=== PATIENT | male | born 1945 | race Caucasian/White ===

== ENCOUNTER 2017-05-15 08:13 | Day surgery (SDC) | payer MEDICARE, BC ==
[~2017-05-15] VITALS: Ht 172.7 cm; Wt 111.1 kg
[~2017-05-15 08:13] MED LIST: AMOXICILLIN500 MG PO; ASPIRIN 81 LOW81 MG PO; ASPIRIN EC325 MG PO; BRIMONIDINE TAR0.2 % OP; CIPROFLOXACN500 MG PO; COSOPT1 ML OT; DOXYCYCL HYC100 MG PO; LEVITRA10 MG PO; LIPITOR20 M1 PO; LOSARTAN POT100 MG PO; NAPROXEN250 MG PO; OCUVIT1 PO; PILOCARPINE OU; PREDNISONE20 MG PO; XALATAN0.005 % OP
[2017-05-15 10:37] VITALS: BP 103/59
== END 2017-05-15 11:22 | disposition home or self-care (01) ==
LOC: ENDO 08:13 → ORM 11:30 → ENDO 11:30
PROVIDERS: ATTEND Surgery
PROC: 0DJD8ZZ Inspection of Lower Intestinal Tract, Via Natural or Artificial Opening Endoscopic (ICD-10-PCS; principal; 2017-05-15)
DX: K59.00 Constipation, unspecified (principal); K57.30 Diverticulosis of large intestine without perforation or abscess without bleeding; I10 Essential (primary) hypertension; E78.00 Pure hypercholesterolemia, unspecified; M19.90 Unspecified osteoarthritis, unspecified site; H40.9 Unspecified glaucoma

== ENCOUNTER 2019-03-18 09:06 | Inpatient (IN) | payer MEDICARE, BC ==
[~2019-03-18] VITALS: Ht 172.7 cm; Wt 111.1 kg
[~2019-03-18 09:06] MED LIST changes: -COSOPT1 ML OT; +COSOPT1 ML OU
[2019-03-18] MEDS ORDERED: NAPROXEN250 MG PO (09:43)
[2019-03-23] VITALS (9 sets, daily range): BP systolic 117–153; BP diastolic 80–94
[2019-03-24 03:41] VITALS: BP 130/79
[2019-03-24 05:01] LABS: HEMATOCRIT 45.6 % (39.0-50.0); HEMOGLOBIN 15.3 g/dl (14.0-18.0)
[2019-03-24 08:36] VITALS: BP 118/70
[2019-03-24 12:00] VITALS: BP 109/66
[2019-03-24 15:56] VITALS: BP 123/69
[2019-03-24 18:40] VITALS: BP 125/75
[2019-03-25 05:10] LABS: HEMATOCRIT 43.3 % (39.0-50.0); HEMOGLOBIN 14.6 g/dl (14.0-18.0); IMMATURE GRANULOCYTES 0.2 % (0.0-5.0); MEAN CELL VOLUME 99.8 fL CALC (80.0-100.0); MEAN CORPUSCULAR HGB 33.6 pG CALC (26.0-32.0); MEAN CORPUSCULAR HGB CONC 33.7 g/L CALC (32.0-36.0); NEUT# 6.05 thou/uL (1.82-7.42); RED BLOOD COUNT 4.34 mill/uL (4.70-6.10)
[2019-03-25 05:12] VITALS: BP 130/71
[2019-03-25 05:29] LABS: ANION GAP 13 (6-22 (CALC)); BUN 14 mg/dL (8-23); BUN/CREATININE RATIO 19 (12-20 (CALC)); CARBON DIOXIDE 23 mmol/l (22-30); CHLORIDE 104 mmol/l (95-108); CREATININE 0.8 mg/dL (0.7-1.3); GFR > 60 ML/MIN (>=60 (CALC)); GFR FOR AFR.AMER. > 60 ML/MIN (>=60 (CALC)); MAGNESIUM 1.7 mg/dL (1.6-2.3); POTASSIUM 4.3 mmol/l (3.5-5.1); SODIUM 135 mmol/l (137-146)
[2019-03-25 08:12] VITALS: BP 147/95
[2019-03-25 10:58] VITALS: BP 121/65
[2019-03-25 17:01] VITALS: BP 142/93
[2019-03-25 18:01] LABS: URINE BILIRUBIN - DIPSTICK NEGATIVE (NEGATIVE); URINE BLOOD DIPSTICK NEGATIVE (NEGATIVE); URINE COLOR YELLOW; URINE GLUCOSE - DIPSTICK NEGATIVE (NEGATIVE); URINE KETONE NEGATIVE (NEGATIVE); URINE LEUK ESTERASE NEGATIVE (NEGATIVE); URINE NITRITE - DIPSTICK NEGATIVE (Negative); URINE PROTEIN - DIPSTICK NEGATIVE (NEG-TRACE); URINE SPECIFIC GRAVITY 1.015; URINE UROBILINOGEN - DIPSTICK 0.2 E.U./dL (0.2)
[2019-03-25 19:24] VITALS: BP 129/82
[2019-03-26 00:17] VITALS: BP 145/86
[2019-03-26 04:30] VITALS: BP 145/94
[2019-03-26 05:21] LABS: HEMATOCRIT 41.1 % (39.0-50.0); HEMOGLOBIN 13.9 g/dl (14.0-18.0); MEAN CORPUSCULAR HGB 33.8 pG CALC (26.0-32.0); MEAN CORPUSCULAR HGB CONC 33.8 g/L CALC (32.0-36.0); RED BLOOD COUNT 4.11 mill/uL (4.70-6.10); RED CELL DISTRI WIDTH 12.7 % (11.5-15.5)
[2019-03-26 08:00] VITALS: BP 131/77
[2019-03-26] MEDS ORDERED: MILK OF MAG30 ML/UDC PO (13:21)
[2019-03-26] MEDS ORDERED: SURFAK240 MG/CAP PO (13:21)
[2019-03-26] MEDS ORDERED: PERCOCET 10/31 COMBO PO (13:21)
[2019-03-26] MEDS ORDERED: ASPIRIN EC325 M1 PO (13:21)
[2019-03-26 15:44] VITALS: BP 124/84
== END 2019-03-26 15:37 | DRG 470 ==
LOC: MS2 03-23 08:49 → OR 03-23 12:30 → MS2 03-26 15:37
PROVIDERS: Nurse Practitioner Family; ADMIT Orthopaedic Surgery; ATTEND Orthopaedic Surgery
PROC: 0SRD0J9 Replacement of Left Knee Joint with Synthetic Substitute, Cemented, Open Approach (ICD-10-PCS; principal; 2019-03-23)
PROC: 3E0T3BZ Introduction of Anesthetic Agent into Peripheral Nerves and Plexi, Percutaneous Approach (ICD-10-PCS; 2019-03-23)
DX: M17.12 Unilateral primary osteoarthritis, left knee (principal); I10 Essential (primary) hypertension; H40.9 Unspecified glaucoma; G47.33 Obstructive sleep apnea (adult) (pediatric); E78.5 Hyperlipidemia, unspecified; H54.7 Unspecified visual loss; H93.292 Other abnormal auditory perceptions, left ear; K59.00 Constipation, unspecified
CPT/HCPCS: J0131; J1100

== ENCOUNTER 2022-08-08 17:25 | Observation (INO) | payer MEDICARE, BC ==
[~2022-08-08] VITALS: Ht 172.7 cm; Wt 110.2 kg
[~2022-08-08 17:25] MED LIST changes: +ASPIRIN EC325 M1 PO; +MILK OF MAG30 ML/UDC PO; +PERCOCET 10/31 COMBO PO; +SURFAK240 MG/CAP PO
[2022-08-08 18:03] LABS: BASO% 0.8 % (0-3); EOS% 5.8 % (0-8); IMMATURE GRANULOCYTES 0.2 % (0.0-5.0); LYMPH% 20.5 % (15-41); MEAN CORPUSCULAR HGB 33.2 pG CALC (26.0-32.0); MEAN CORPUSCULAR HGB CONC 33.2 g/dL CAL (32.0-36.0); MONO% 14.3 % (2-13); NEUT# 3.76 thou/uL (1.82-7.42); NEUT% 58.4 % (42-76); RED BLOOD COUNT 5.03 mill/uL (4.70-6.10); RED CELL DISTRI WIDTH 15.1 % (11.5-15.5)
[2022-08-08 18:07] LABS: ALBUMIN 4.1 g/dL (3.2-5.0); ALKALINE PHOSPHATASE 67 u/l (38-126); ANION GAP 11 (6-22 (CALC)); BUN 19 mg/dL (8-23); BUN/CREATININE RATIO 22 (12-20 (CALC)); CARBON DIOXIDE 24 mmol/l (22-30); CHLORIDE 107 mmol/l (95-108); CREATININE 0.9 mg/dL (0.7-1.3); GFR FOR AFR.AMER. > 60 ML/MIN (>=60 (CALC)); GFR OTHER RACES > 60 ML/MIN (>=60 (CALC)); HEMATOCRIT 50.3 % (39.0-50.0); HEMOGLOBIN 16.7 g/dl (14.0-18.0); POTASSIUM 4.1 mmol/l (3.5-5.1); SGOT/AST 23 u/l (19-48); SODIUM 137 mmol/l (137-146); TOTAL PROTEIN 6.9 g/dL (6.3-8.2)
[2022-08-08 18:09] LABS: BILIRUBIN, TOTAL 1.4 mg/dL (0.2-1.3)
[2022-08-08 18:15] LABS: PROTHROMBIN TIME 10.2 SECONDS (9.0-12.5)
[2022-08-08] MEDS ORDERED: TAMSULOSIN0.4 MG PO (20:10)
[2022-08-08 21:52] VITALS: BP 146/88
[2022-08-08 22:22] VITALS: BP 146/88
[2022-08-08 23:29] VITALS: BP 124/79
[2022-08-08 23:31] VITALS: BP 118/70
[2022-08-09 00:09] VITALS: BP 118/70
[2022-08-09 04:58] VITALS: BP 118/70
[2022-08-09 07:01] VITALS: BP 119/83
[2022-08-09 08:24] LABS: URINE BILIRUBIN - DIPSTICK NEGATIVE (NEGATIVE); URINE COLOR YELLOW; URINE GLUCOSE - DIPSTICK NEGATIVE (NEGATIVE); URINE KETONE NEGATIVE (NEGATIVE); URINE LEUK ESTERASE NEGATIVE (NEGATIVE); URINE NITRITE - DIPSTICK NEGATIVE (Negative); URINE PROTEIN - DIPSTICK NEGATIVE (NEG-TRACE); URINE SPECIFIC GRAVITY 1.025; URINE UROBILINOGEN - DIPSTICK 0.2 E.U./dL (0.2)
[2022-08-09 08:25] LABS: URINE BLOOD DIPSTICK NEGATIVE (NEGATIVE)
[2022-08-09 08:56] VITALS: BP 145/94
[2022-08-09 10:48] VITALS: BP 112/58; BP 112/85
== END 2022-08-09 15:55 | disposition home or self-care (01) ==
LOC: ED 17:25 → ED-I 19:00 → ED 19:16 → MS2 19:17
PROVIDERS: Family Medicine; ADMIT Internal Medicine; ATTEND Internal Medicine
DX: G45.9 Transient cerebral ischemic attack, unspecified (principal); I10 Essential (primary) hypertension; H40.9 Unspecified glaucoma; H54.61 Unqualified visual loss, right eye, normal vision left eye; G47.33 Obstructive sleep apnea (adult) (pediatric); E78.5 Hyperlipidemia, unspecified; Z86.69 Personal history of other diseases of the nervous system and sense organs
CPT/HCPCS: Q9967

== ENCOUNTER 2023-10-08 15:03 | Emergency (ER) | payer MEDICARE, BC ==
[2023-10-08] VITALS (8 sets, daily range): BP systolic 106–130; BP diastolic 71–90
[~2023-10-08] VITALS: Ht 167.6 cm; Wt 94.4 kg
[~2023-10-08 15:03] MED LIST changes: +B121000 MC1 PO; +BAYER ASPIRIN E81 MG PO; +FUROSEMIDE20 MG PO; +PREDNISOLONE ACET1 %; +PROSCAR5 MG PO; +TAMSULOSIN0.4 MG PO; +[UNRECOGNIZED DRUG - OTHER]
[2023-10-08] MEDS ORDERED: SODIUM CHLORIDE 0.9% 1,000 ML IV ONE (15:15)
[2023-10-08 15:29] LABS: IMMATURE GRANULOCYTES 0.4 % (0.0-5.0); LYMPH% 45.7 % (15-41); MEAN CELL VOLUME 95.8 fL CALC (80.0-100.0); MEAN CORPUSCULAR HGB 30.1 pG CALC (26.0-32.0); MEAN CORPUSCULAR HGB CONC 31.5 g/dL CAL (32.0-36.0); MONO% 39.8 % (2-13); NEUT# 0.31 thou/uL (1.82-7.42); NEUT% 12.1 % (42-76); RED BLOOD COUNT 4.81 mill/uL (4.70-6.10); RED CELL DISTRI WIDTH 23.6 % (11.5-15.5)
[2023-10-08 15:40] LABS: CREATININE 1.2 mg/dL (0.7-1.3); POTASSIUM 4.5 mmol/l (3.5-5.1); TOTAL PROTEIN 7.6 g/dL (6.3-8.2)
[2023-10-08 15:55] LABS: D-DIMER 1.05 mg/L (0.19-0.60)
[2023-10-08 15:57] LABS: INTERNATIONAL NORMALIZED RATIO 1.5 RATIO (0.7-1.3); PROTHROMBIN TIME 13.6 SECONDS (9.0-12.5)
[2023-10-08 15:59] LABS: HEMATOCRIT 46.1 % (39.0-50.0); HEMOGLOBIN 14.5 g/dl (14.0-18.0)
[2023-10-08] MEDS ORDERED: ASPIRIN 81 MG/TAB PO ONE (16:05)
[2023-10-08] MEDS ORDERED: Heparin SODIUM (Porcine) 5,000 UNITS/ML SDV IV ONE (17:05)
[2023-10-08] MEDS ORDERED: Heparin SODIUM (Porcine) 500 ML IV ONE ×2 (17:05)
== END 2023-10-08 18:24 | disposition short-term general hospital (02) ==
LOC: ED 15:03
PROVIDERS: Family Medicine
DX: I26.92 Saddle embolus of pulmonary artery without acute cor pulmonale (principal); I10 Essential (primary) hypertension; H54.61 Unqualified visual loss, right eye, normal vision left eye; C43.9 Malignant melanoma of skin, unspecified; Z79.60 Long term (current) use of unspecified immunomodulators and immunosuppressants
CPT/HCPCS: J1644; Q9967

== ENCOUNTER 2023-11-18 07:06 | Emergency (ER) | payer MEDICARE, BC ==
[~2023-11-18] VITALS: Ht 167.6 cm; Wt 79.3 kg
[2023-11-18 07:22] VITALS: BP 128/68
[2023-11-18 07:30] VITALS: BP 130/73
[2023-11-18 07:45] VITALS: BP 115/74
[2023-11-18] MEDS ORDERED: CEPHALEXIN500 M1 PO (07:47)
[2023-11-18] MEDS ORDERED: BACTRIM DS1 TAB PO (07:47)
[2023-11-18 08:02] VITALS: BP 115/74
== END 2023-11-18 08:04 | disposition home or self-care (01) ==
LOC: ED 07:06
DX: T81.41XA Infection following a procedure, superficial incisional surgical site, initial encounter (principal); L02.214 Cutaneous abscess of groin; I10 Essential (primary) hypertension; H54.61 Unqualified visual loss, right eye, normal vision left eye; Y83.8 Other surgical procedures as the cause of abnormal reaction of the patient, or of later complication, without mention of misadventure at the time of the procedure

== ENCOUNTER 2024-05-09 11:02 | Emergency (ER) | payer MEDICARE, BC ==
[~2024-05-09] VITALS: Ht 167.6 cm; Wt 98.0 kg
[2024-05-09] VITALS (12 sets, daily range): BP systolic 108–141; BP diastolic 64–87
[~2024-05-09 11:02] MED LIST changes: +BACTRIM DS1 TAB PO; +CEPHALEXIN500 M1 PO
[2024-05-09] MEDS ORDERED: ONDANSETRON HCl 4 MG/2 ML SDV IV ONE (11:20)
[2024-05-09] MEDS ORDERED: MORPHINE SULFATE 4 MG/ML VIAL IV ONE (11:20)
[2024-05-09 11:26] LABS: BASO% 1.3 % (0-3); EOS% 19.9 % (0-8); HEMATOCRIT 35.9 % (39.0-50.0); IMMATURE GRANULOCYTES 0.2 % (0.0-5.0); MEAN CELL VOLUME 110.1 fL CALC (80.0-100.0); MEAN CORPUSCULAR HGB 36.8 pG CALC (26.0-32.0); MEAN CORPUSCULAR HGB CONC 33.4 g/dL CAL (32.0-36.0); MONO% 7.3 % (2-13); NEUT# 2.53 thou/uL (1.82-7.42); NEUT% 53.1 % (42-76); RED BLOOD COUNT 3.26 mill/uL (4.70-6.10); RED CELL DISTRI WIDTH 14.9 % (11.5-15.5)
[2024-05-09 11:44] LABS: ALBUMIN 3.7 g/dL (3.2-5.0); ALKALINE PHOSPHATASE 111 u/l (38-126); BILIRUBIN, TOTAL 0.8 mg/dL (0.2-1.3); BUN 20 mg/dL (8-23); BUN/CREATININE RATIO 20 (12-20 (CALC)); CHLORIDE 104 mmol/l (95-108); ESTIMATED GFR 77 ML/MIN (>=90 (CALC)); LYMPH% 18.2 % (15-41); SGOT/AST 35 u/l (19-48); SODIUM 136 mmol/l (137-146)
[2024-05-09 11:51] LABS: ANION GAP 13 (6-22 (CALC)); CARBON DIOXIDE 23 mmol/l (22-30)
[2024-05-09] MEDS ORDERED: HYDROmorphone HCL 2 MG/AMP IV ONE (13:40)
== END 2024-05-09 13:59 | disposition short-term general hospital (02) ==
LOC: ED 11:02 → ED-I 11:59 → ED 13:59
PROVIDERS: Family Medicine
DX: S72.141A Displaced intertrochanteric fracture of right femur, initial encounter for closed fracture (principal); I10 Essential (primary) hypertension; E78.5 Hyperlipidemia, unspecified; C15.9 Malignant neoplasm of esophagus, unspecified; H54.8 Legal blindness, as defined in USA; W19.XXXA Unspecified fall, initial encounter; Z79.60 Long term (current) use of unspecified immunomodulators and immunosuppressants
CPT/HCPCS: J1171; J2405